=== PATIENT | male | born 1990 | race Caucasian/White ===

== ENCOUNTER 2016-07-29 10:48 | Emergency (ER) | payer SELFPAY ==
[~2016-07-29] VITALS: Ht 175.3 cm; Wt 74.8 kg
[2016-07-29 10:57] VITALS: BP 128/88
[2016-07-29] MEDS ORDERED: DIPHTH,PERTUSS(ACELL),TET TOX 0.5 ML DISP.SYRIN. VAX IM ONE (11:15)
[2016-07-29] MEDS ORDERED: HYDROCODONE/APAP 5/325MG TABLET. PO ONE (11:15)
[2016-07-29] MEDS ORDERED: BUPIVACAINE 0.5% 50 ML VIAL. IJ ONE (11:15)
--- NOTE | 2016-07-29 11:46 | RAD ---
Right hand radiographs History: Pain and laceration after being cut with chainsaw. Comparison: None. Findings: PA, lateral, and oblique views of the right hand. No acute fracture or dislocation is identified. No radiopaque soft tissue foreign body is seen. Impression: No acute osseous abnormality identified.
[2016-07-29] MEDS ORDERED: CIPR500T94 PO (13:38)
[2016-07-29] MEDS ORDERED: HYDR-971 PO (13:38)
--- NOTE | 2016-07-29 13:39 | PHYS DOC ---
Past Medical History Past Medical History: No Pertinent History Past Surgical History: No Surgical History Alcohol Use: None Drug Use: Marijuana Adult General Chief Complaint Chief Complaint: LACERATION/AVULSION [facility] HPI Patient is a 26 year old male who presents with right hand laceration, patient states a chainsaw cut him while cutting a tree. Patient states he had plastic gloves one when this happened Review of Systems Review of Systems Constitutional: Denies fever or chills [] Eyes: Denies change in visual acuity, redness, or eye pain [] HENT: Denies nasal congestion or sore throat [] Respiratory: Denies cough or shortness of breath [] Cardiovascular: No additional information not addressed in HPI [] GI: Denies abdominal pain, nausea, vomiting, bloody stools or diarrhea [] : Denies dysuria or hematuria [] Musculoskeletal: Denies back pain or joint pain [] Integument: Right hand laceration Neurologic: Denies headache, focal weakness or sensory changes [] Endocrine: Denies polyuria or polydipsia [] Current Medications Current Medications Current Medications Medications (Trade) Dose Ordered Sig/Nathanael Start Time Stop Time Status Last Admin Dose Admin Acetaminophen/ Hydrocodone Bitart (Lortab 5/325) 1 tab 1X ONCE 07/29/16 11:15 07/29/16 11:16 DC 07/29/16 11:41 1 TAB Bupivacaine HCl (Marcaine 0.5%) 50 ml 1X ONCE 07/29/16 11:15 07/29/16 11:16 DC 07/29/16 11:41 50 ML Diphtheria/ Tetanus/Acell Pertussis (Boostrix) 0.5 ml ONCE ONCE 07/29/16 11:15 07/29/16 11:16 DC 07/29/16 11:54 0.5 ML Allergies Allergies Allergies Coded Allergies Type Severity Reaction Last Updated Verified No Known Drug Allergies 07/29/16 No Physical Exam Physical Exam Constitutional: Well developed, well nourished, no acute distress, non-toxic appearance. [] HENT: Normocephalic, atraumatic, bilateral external ears normal, oropharynx moist, no oral exudates, nose normal. [] Eyes: PERRLA, EOMI, conjunctiva normal, no discharge. [] Neck: Normal range of motion, no tenderness, supple, no stridor. [] Cardiovascular:Heart rate regular rhythm, no murmur [] Lungs & Thorax: Bilateral breath sounds clear to auscultation [] Abdomen: Bowel sounds normal, soft, no tenderness, no masses, no pulsatile masses. [] Skin: Right hand with a jagged laceration approximately 6 x 2 cm. There is no obvious tendon involvement. Full range of motion to the right hand and fingers. Adequate medial radial and ulnar sensation to the right hand. +2 right radial pulse. Cap refill less than 2 seconds the right upper extremity. Back: No tenderness, no CVA tenderness. [] Extremities: No tenderness, no cyanosis, no clubbing, ROM intact, no edema. [] Neurologic: Alert and oriented X 3, normal motor function, normal sensory function, no focal deficits noted. [] Psychologic: Affect normal, judgement normal, mood normal. [] Current Patient Data Vital Signs Vital Signs Date Time Temp Pulse Resp B/P Pulse Ox O2 Delivery O2 Flow Rate FiO2 07/29/16 12:45 Room Air 07/29/16 10:57 98.0 64 18 128/88 100 98.0 EKG EKG [] Radiology/Procedures Radiology/Procedures []PROCEDURE: HAND RIGHT 3V Right hand radiographs History: Pain and laceration after being cut with chainsaw. Comparison: None. Findings: PA, lateral, and oblique views of the right hand. No acute fracture or dislocation is identified. No radiopaque soft tissue foreign body is seen. Impression: No acute osseous abnormality identified. DICTATED and SIGNED BY: KETURAH ADAMES MD DATE: 07/29/16 1142 CC: MARSHALL MATA APRN; NO PCP ~ Indication: Right hand laceration Procedure: The patient was placed in the appropriate position and anesthesia around the laceration was 0.5% of bupivacaine. The laceration was assessed for foreign objects, those none. The laceration was cleaned with 250 ML of normal saline, and Betadine. The inner laceration was closed with 5 interrupted sutures using 5. 0 Vicryl, the exterior laceration was closed with 20 5 interrupted sutures using 4. 0 Ethilon. Other Items: none The patient tolerated the procedure well Complications: none Course & Med Decision Making Course & Med Decision Making Pertinent Labs and Imaging studies reviewed. (See chart for details) Patient has right hand laceration from chainsaw injury. Right hand x-rays interpreted by radiologist are negative for any acute findings. He was given tetanus in the ED. Laceration was closed as noted in procedures. He is to follow -up with the ED or PCP in 7-10 days for suture removal. Paulo Disclaimer Paulo Disclaimer This electronic medical record was generated, in whole or in part, using a voice recognition dictation system. Departure Departure Impression: Primary Impression: Laceration of hand Disposition: HOME, SELF-CARE Condition: STABLE Referrals: NO PCP (PCP) Follow-up with the ED or your primary care doctor in 7-10 days for suture removal Patient Instructions: Laceration Care, Adult Additional Instructions: You have lacerations to the right hand. Keep it clean and dry. Apply Neosporin to it twice a day. Monitor it for signs and symptoms of infection including increased redness warmth or odor drainage from the area and return to the ED if they occur. Scripts Hydrocodone/Apap 5-325 (Hadley 5-325 Tablet)1 Each Tablet1 Tab PO Q6-8HRS PRN PAIN #12 TAB Prov:MARSHALL MATA APRN 07/29/16 Ciprofloxacin Hcl (Cipro)500 Mg Tablet1 Tab PO BID #14 TAB Prov:MARSHALL MATA APRN 07/29/16 Problem Qualifiers Primary Impression: Laceration of hand Encounter type: initial encounter Laterality: right Qualified Code: S61.411A - Laceration without foreign body of right hand, initial encounter MARSHALL MATA APRN Jul 29, 2016 13:39
== END 2016-07-29 13:48 | disposition home or self-care (01) ==
LOC: ER 10:48
DX: S61.411A Laceration without foreign body of right hand, initial encounter (principal); W45.8XXA Other foreign body or object entering through skin, initial encounter; Y93.89 Activity, other specified; Y92.89 Other specified places as the place of occurrence of the external cause; Y99.8 Other external cause status
CPT/HCPCS: 12002; 73130; 90471; 90715; 99284; J3490